=== PATIENT | female | born 1980 | race Two or more races ===

== ENCOUNTER 2021-07-23 11:34 | Emergency (ER) | payer MEDICAID ==
[2021-07-23] MEDS ORDERED: Magnesium Sulfate/Water 2 GM in Premix Bag 1 BAG IV ONE (14:01)
[2021-07-23] MEDS ORDERED: Sodium Chloride 0.9% 10 ML Syringe FLUSH PRN (14:01)
[2021-07-23] MEDS ORDERED: Sodium Chloride 0.9% 1,000 ML IV SCH (14:15)
[2021-07-23] MEDS ORDERED: LORazepam 2 MG/ML SDV IVPUSH ONE (14:30)
--- NOTE | 2021-07-23 15:35 | EDM.PDOC ---
ED HPI GENERAL MEDICAL PROBLEM - General Chief Complaint: General Stated Complaint: MUSCLE CRAMPS Time Seen by Provider: 07/23/21 13:30 Source of Information: Reports: Patient, RN, Significant Other History Limitations: Reports: Other (general malaise) - History of Present Illness INITIAL COMMENTS - FREE TEXT/NARRATIVE: Mary is a 40 year old female whom was brought to ER by significant other due to generalized muscle spasms and pain which has progressively worsened over the last 1-2 days. Mary is visiting the area, has not been to [place] ER since 2010 when she was evaluated for narcotic addiction which, she reports no current addiction concerns. Mary normal doctors in [facility]. Mary has been evaluated for similar symptoms involving her right shoulder and prescribed baclofen and oxycodone without improvement. Mary reports took Flexeril, Tylenol and Ibuprofen this am with no improvement thereafter presents to ER for muscle spasms and pain concerns, with compounding lupus and fibromyalgia concerns. Generalized Pain Score (Numeric/FACES): 10 - Related Data Allergies Allergy/AdvReac Type Severity Reaction Status Date / Time No Known Allergies Allergy Verified 07/23/21 13:35 Home Meds: Home Meds Acetaminophen [Tylenol Extra Strength] 1,000 mg PO TID PRN 07/23/21 [History] Aspirin [Halfprin] 81 mg PO DAILY 07/23/21 [History] Cyclobenzaprine [Flexeril] 10 mg PO TID PRN 07/23/21 [History] Dextroamphetamine/Amphetamine [Adderall] 30 mg PO DAILY 07/23/21 [History] Ibuprofen 800 mg PO TID PRN 07/23/21 [History] Losartan [Cozaar] 50 mg PO DAILY 07/23/21 [History] Magnesium Oxide [Magnesium] 400 mg PO DAILY 07/23/21 [History] Omeprazole 40 mg PO ACBREAKFAST 07/23/21 [History] atorvaSTATin [Lipitor] 40 mg PO BEDTIME 07/23/21 [History] cloNIDine [Catapres] 0.2 mg PO Q12HR 07/23/21 [History] metFORMIN [Glucophage XR] 500 mg PO BIDMEALS 07/23/21 [History] traZODone 50 mg PO BEDTIME 07/23/21 [History] Past Medical History HEENT History: Reports: Impaired Vision Cardiovascular History: Reports: High Cholesterol, Hypertension Respiratory History: Reports: Asthma, SOB Gastrointestinal History: Reports: GERD 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: Musculoskeletal History: Reports: Fibromyalgia Psychiatric History: Reports: Anxiety, PTSD Endocrine/Metabolic History: Reports: Diabetes, Type II Immunologic History: Reports: SLE - Past Surgical History Neurological Surgical History: Reports: C-Spine Social & Family History - Tobacco Use Tobacco Use Status *Q: Current Every Day Tobacco User Years of Tobacco use: 22 Packs/Tins Daily: 1 - Caffeine Use Caffeine Use: Reports: Coffee - Recreational Drug Use Recreational Drug Use: Yes Recreational Drug Type: Reports: Marijuana/Hashish Recreational Drug Use Frequency: Weekly ED ROS GENERAL - Review of Systems Review Of Systems: Comprehensive ROS is negative, except as noted in HPI. ED EXAM, GENERAL - Physical Exam Exam: See Below Exam Limited By: Other (uncomfortable due to muscle spasms and pain due to spasms.) General Appearance: Alert, Other (abnormal muscle movements concerning for withdrawal of TD due to medications. ) Eye Exam: Bilateral Eye: Normal Inspection Ears: Hearing Grossly Normal Nose: Normal Inspection Throat/Mouth: Normal Inspection (dry mouth. ) Neck: Normal Inspection Respiratory/Chest: No Respiratory Distress, Normal Breath Sounds Cardiovascular: Normal Peripheral Pulses, Tachycardia GI/Abdominal: Normal Bowel Sounds, Soft, Non-Tender (no focal discomfort) Extremities: Other (irregular bilateral upper and lower extremity movements ) Neurological: Alert, Oriented, CN II-XII Intact, Normal Cognition Psychiatric: Anxious, Tearful Skin Exam: Warm, Dry, No Rash Course - Vital Signs Last Recorded V/S: Last Vital Signs Temp 36.1 C 07/23/21 13:46 Pulse 101 H 07/23/21 13:46 Resp 30 H 07/23/21 13:46 BP 107/46 L 07/23/21 13:46 Pulse Ox 94 L 07/23/21 13:46 - Orders/Labs/Meds Orders: Active Orders 24 hr Category Date Time Status Peripheral IV Care [RC] . DIRECTED Care 07/23/21 14:01 Active Magnesium Sulfate/Water [Magnesium Sulfate in Water 2 Med 07/23/21 14:01 Active GM/50 ML] 2 gm Premix Bag 1 bag IV ONETIME Sodium Chloride 0.9% [Normal Saline] 1,000 ml Med 07/23/21 14:15 Active IV ASDIRECTED Sodium Chloride 0.9% [Saline Flush] Med 07/23/21 14:01 Active 10 ml FLUSH ASDIRECTED PRN Peripheral IV Insertion Adult [OM.PC] Urgent Oth 07/23/21 14:01 Ordered Medication Orders Sodium Chloride (Normal Saline) 1,000 mls @ 1,000 mls/hr IV ASDIRECTED ADRIEL Last Admin: 07/23/21 14:14 Dose: 1,000 mls/hr Documented by: ELAINA Magnesium Sulfate 2 gm/ Premix 50 mls @ 25 mls/hr IV ONETIME ONE Stop: 07/23/21 16:00 Last Admin: 07/23/21 14:15 Dose: 25 mls/hr Documented by: ELAINA Sodium Chloride (Sodium Chloride 0.9% 10 Ml Syringe) 10 ml FLUSH ASDIRECTED PRN PRN Reason: Keep Vein Open Last Admin: 07/23/21 14:14 Dose: 10 ml Documented by: ELAINA Labs: Laboratory Tests 07/23/21 Range/Units 14:13 Sodium 127 L (140-148) mmol/L Potassium 3.5 L (3.6-5.2) mmol/L Chloride 91 L (100-108) mmol/L Carbon Dioxide 22 (21-32) mmol/L Anion Gap 17.5 H (5.0-14.0) mmol/L BUN 38 H (7-18) mg/dL Creatinine 1.8 H (0.6-1.0) mg/dL Est Cr Clr Drug Dosing 35.88 mL/min Estimated GFR (MDRD) 31 L (>60) Glucose 193 H (74-106) mg/dL Calcium 7.9 L (8.5-10.1) mg/dL Magnesium 2.3 (1.8-2.4) mg/dL Meds: Medications Generic Name Dose Route Start Last Admin Trade Name Freq PRN Reason Stop Dose Admin Sodium Chloride 1,000 mls @ 1,000 mls/hr 07/23/21 14:15 07/23/21 14:14 Normal Saline IV 1,000 mls/hr ASDIRECTED ADRIEL Administration Magnesium Sulfate 2 gm/ Premix 50 mls @ 25 mls/hr 07/23/21 14:01 07/23/21 14:15 IV 07/23/21 16:00 25 mls/hr ONETIME ONE Administration Sodium Chloride 10 ml 09/12/21 14:01 07/23/21 14:14 Sodium Chloride 0.9% 10 Ml Syringe FLUSH 10 ml ASDIRECTED PRN Administration Keep Vein Open Discontinued Medications Generic Name Dose Route Start Last Admin Trade Name Ameyaq PRN Reason Stop Dose Admin Lorazepam 1 mg 07/23/21 14:30 07/23/21 14:47 Lorazepam 2 Mg/Ml Sdv IVPUSH 07/23/21 14:31 1 mg ONETIME ONE Administration Departure - Departure Time of Disposition: 15:47 Disposition: Home, Self-Care 01 Clinical Impression: Muscle spasm, Muscle pain - Discharge Information Instructions: Muscle Cramps and Spasms, Musculoskeletal Pain Referrals: PCP,None [Primary Care Provider] - Forms: ED Department Discharge Additional Instructions: 1. Increased fluid intake. 2. Call PCP Saturday for recheck regarding low sodium and elevated renal function (poor renal) function test results. 3. Patient was resting after ativan iv dose. 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 4. Return to ER if concerns. Sepsis Event Note (ED) - Evaluation Sepsis Screening Result: No Definite Risk - Focused Exam Vital Signs: Vital Signs Temp Pulse Resp BP Pulse Ox 07/23/21 13:46 36.1 C 101 H 30 H 107/46 L 94 L 07/23/21 13:03 36.1 C 101 H 30 H 107/46 L 94 L - My Orders Last 24 Hours: My Active Orders 07/23/21 14:01 Peripheral IV Care [RC] . DIRECTED Magnesium Sulfate/Water [Magnesium Sulfate in Water 2 GM/50 ML] 2 gm Premix Bag 1 bag IV ONETIME Sodium Chloride 0.9% [Saline Flush] 10 ml FLUSH ASDIRECTED PRN Peripheral IV Insertion Adult [OM.PC] Urgent 07/23/21 14:15 Sodium Chloride 0.9% [Normal Saline] 1,000 ml IV ASDIRECTED - Assessment/Plan Last 24 Hours: My Active Orders 07/23/21 14:01 Peripheral IV Care [RC] . DIRECTED Magnesium Sulfate/Water [Magnesium Sulfate in Water 2 GM/50 ML] 2 gm Premix Bag 1 bag IV ONETIME Sodium Chloride 0.9% [Saline Flush] 10 ml FLUSH ASDIRECTED PRN Peripheral IV Insertion Adult [OM.PC] Urgent 07/23/21 14:15 Sodium Chloride 0.9% [Normal Saline] 1,000 ml IV ASDIRECTED
== END 2021-07-23 16:06 | disposition home or self-care (01) ==
LOC: JP.ED 11:34
DX: M62.838 Other muscle spasm (principal); E78.00 Pure hypercholesterolemia, unspecified; I10 Essential (primary) hypertension; K21.9 Gastro-esophageal reflux disease without esophagitis; J45.909 Unspecified asthma, uncomplicated; E11.9 Type 2 diabetes mellitus without complications; Z72.0 Tobacco use; Z79.84 Long term (current) use of oral hypoglycemic drugs; Z79.899 Other long term (current) drug therapy; Z79.82 Long term (current) use of aspirin
CPT/HCPCS: 36415; 80048; 83735; 96365; 96366; 96375; 99284; J2060; J3475; J7030